=== PATIENT | male | born 1975 | race Caucasian/White ===

== ENCOUNTER 2018-09-13 16:05 | Emergency (ER) | payer OTHER ==
--- NOTE | 2018-09-13 16:08 | EDPHY ---
H & P Time Seen by Provider: 09/13/18 16:06 Constitutional: Initial Vital Signs Temperature (C) 37 C 09/13/18 16:13 Heart Rate 77 09/13/18 16:13 Respiratory Rate 16 09/13/18 16:13 Blood Pressure 142/87 H 09/13/18 16:13 O2 Sat (%) 98 09/13/18 16:13 O2 Delivery Mode Room Air Medical Decision Making - Diagnostics Imaging Results: Imaging Impressions Knee X-Ray 09/13/18 16:07 Impression: No acute osseous findings. Imaging: I viewed and interpreted images myself ED Course/Re-evaluation: CHIEF COMPLAINT: Right knee dislocation HISTORY OF PRESENT ILLNESS: The patient is a 43 y/o male arriving via EMS complaining of a right knee dislocation. The patient was training today when he stepped incorrectly and subsequently dislocated his right knee. He noticed that there was a large bulge on the lateral aspect of his knee. At that time his pain was a 12/10. He was able to self relocate the knee which improved his knee to an 8/10. When EMS arrived, they gave the patient 25mg IV Ketamine which completely resolved his pain. No fever, headache, body aches, lightheadedness, chest pain, heart palpitations, shortness of breath, cough, abdominal pain, urinary or bowel complaints, numbness, paresthesias. REVIEW OF SYSTEMS: A 10 point review of systems was performed and is negative with the exception of the elements mentioned in the history of present illness. PHYSICAL EXAM: HR, BP, O2 Sat, RR. Temp noted General Appearance: Alert, well hydrated, appropriate, and non-toxic appearing. Head: Atraumatic without scalp tenderness or obvious injury Eyes: Pupils equal, round, reactive to light and accommodation, EOMI, no trauma , no injection. Ears: Clear bilaterally, no perforation, normal landmarks Nose: Atraumatic, no rhinorrhea, clear. Throat: There is no erythema or exudates, no lesions, normal tonsils, mucus membranes moist. Neck: Supple, 2+ carotid upstroke, nontender, no lymphadenopathy. Respiratory: No retractions, no distress, no wheezes, and no accessory muscle use. Lungs are clear to auscultation bilaterally. Cardiovascular: Regular rate and rhythm, no murmurs, rubs, or gallops. Bilateral carotid, radial, dorsalis pedis, and posterior tibial pulses intact. Good capillary refill all extremities. Gastrointestinal: Abdomen is soft, nontender, non-distended, no masses, no rebound, no guarding, no peritoneal signs. Musculoskeletal: Minor tenderness when I move the right patella. Otherwise normal active ROM of all extremities, atraumatic. Neurological: Alert, appropriate, and interactive. The patient has normal DTRs and non-focal cranial nerves, motor, sensory, and cerebellar exam. Skin: No rashes, good turgor, no nodules on palpation. Past medical history: Denies Past surgical history: Denies Family history: Denies Social history: Single, employed, lives in [place] DIAGNOSTICS/PROCEDURES/CRITICAL CARE TIME: Right knee x-ray: No acute osseous findings. DIFFERENTIAL DIAGNOSIS: The differential diagnosis for the patient's knee injury included but was not limited to fracture, ligamentous injury, contusion, muscular strain, and meniscus injury. MEDICAL DECISION MAKING: The patient is a 43 y/o male arriving via EMS presenting with a relocated right knee dislocation. When EMS arrived, they gave the patient 25mg IV Ketamine which completely resolved his pain. On exam the patient has tenderness when I move his right patella. But he otherwise has a normal exam. Right knee x-ray ordered. 1700: Patient's knee x-ray is unremarkable. Reassessed patient and discussed imaging findings. Patient has been placed in a knee immobilizer and advised to follow up with an orthopedic surgeon. Return precautions provided; patient is comfortable with this plan. Departure - Departure Disposition: Home, Routine, Self-Care Clinical Impression: Right knee dislocation Qualifiers: Encounter type: initial encounter Qualified Code(s): S83.104A - Unspecified dislocation of right knee, initial encounter Instructions: Knee Dislocation (ED), Knee Immobilizer (ED) Additional Instructions: 1. Take Motrin as prescribed. 2. Rest, ice, elevation. 3. Follow up with an orthopedic surgeon within one week if pain persists. 4. Return to the emergency department for worsening pain, swelling, numbness, weakness or other concerns. 5. Wear knee immobilizer until follow up. Referrals: Lyric Justin MD [Medical Doctor] - As per Instructions Report Scribed for: Gera Abbott Report Scribed by: Kathleen Gonzalez Date of Report: 09/13/18 Time of Report: 16:08
[2018-09-13 17:01] VITALS: BP 131/90
== END 2018-09-13 17:14 | disposition home or self-care (01) ==
LOC: EDUNIT#
DX: S83.104A Unspecified dislocation of right knee, initial encounter (principal); X50.9XXA Other and unspecified overexertion or strenuous movements or postures, initial encounter